=== PATIENT | female | born 2005 | race Caucasian/White ===

== ENCOUNTER 2024-06-29 21:17 | Inpatient (IN) ==
--- NOTE | 2024-06-29 21:51 | Emergency Department Note ---
Impression & Plan Mandibular abscess, Swelling of right side of face, Trismus ED Provider Note CHIEF COMPLAINT: Right sided facial swelling, dental pain x 1 week HISTORY OF PRESENT ILLNESS: This 18-year-old female patient presents to the emergency department via private vehicle accompanied by male for evaluation of right-sided dental pain and facial swelling. Patient states she developed dental pain about a week ago. She notes that she was seen by her dentist in [place] twice last week. She was started on amoxicillin and had a temporary crown placed. Patient states since , she has developed intermittent chills and fevers with Tmax of 100.9 F. She states that she has been taking amoxicillin and diclofenac without relief of her symptoms. Today, the patient is having difficulty opening her mouth due to the pain and swelling. She has not taken any additional medication for her symptoms. She denies any discharge from the mouth. She states that there is pain radiating down toward the neck and into the right ear as well. She denies any chest pain or shortness of breath. No numbness or tingling. Patient has had recent cold-like symptoms with congestion, runny nose, and sore throat. REVIEW OF SYSTEMS: A 10 system review of systems was performed with positives and pertinent negatives listed in the history of present illness. All other systems were reviewed and are negative. ALLERGIES: NKDA PHYSICAL EXAM: VITALS: Vitals are noted on the nurse's note and reviewed by myself. Vital signs stable. GENERAL: This is a 18-year-old female, in no acute distress, nondiaphoretic, well-developed well-nourished. SKIN: The skin was without rashes, erythema, edema, or bruising. There is no tenting of the skin. Capillary refill less than 2 seconds. HEAD: Normocephalic atraumatic. EARS: External auditory canals clear, tympanic membranes pearly de without erythema or effusion bilaterally. No hemotympanum. Negative baker sign EYES: Pupils equal round and reactive to light and accommodation. Conjunctivae without injection, sclerae without icterus. Extraocular movements intact. NOSE: Patent, turbinates without inflammation or discharge. No sinus tenderness. MOUTH: Mucous membranes moist. +Trismus. Tonsils are not enlarged. Pharynx without erythema or exudate. Uvula midline. Airway patent. Tongue does not deviate. Patient is generally good dentition. There is some edema and tenderness of the gingiva lower side of the jaw on the right. No specific dental pain to percussion. NECK: Supple without nuchal rigidity. No lymphadenopathy. Cervical spine is nontender. No JVD. HEART: Regular rate and rhythm without murmurs gallops or rubs. LUNGS: Clear to auscultation bilaterally without wheezes, rales or rhonchi. No retractions or accessory muscle use. MUSCULOSKELETAL: No muscle atrophy, erythema, or edema noted. Full range of motion without joint tenderness in all extremities. No tenderness to palpation. Normal gait. Strength 5/5 throughout. NEURO: Patient was alert and oriented to person place and time. No focal neurological deficits. An order was placed for continuous property assessment monitor. The monitor showed a sinus tachycardia at a ventricular rate of 109 bpm, per my interpretation. Imaging as interpreted by myself and the radiologist revealed periapical abscesses with large periosteal abscess about the medial right mandible extending into the submandibular space, with radiologist interpretation as above. I agree with the radiologist's findings as based upon my independent interpretation. EMERGENCY DEPARTMENT COURSE: The patient was seen and evaluated as above. The patient presents for right-sided facial pain and swelling. The patient does also have trismus. She has been having fevers, chills, difficulty eating and drinking. Patient did have a root canal and temporary crown placed earlier in the week by a dentist in [place]. Given the patient's history and examination, I did recommend workup as above. IV access was obtained, labs were drawn. Per my interpretation, there is no leukocytosis or anemia. No thrombocytopenia. Hepatic function and electrolytes without significant abnormality. INR 1.1. hCG negative. Procalcitonin less than 0.02. Respiratory bio fire test is negative. Patient was hydrated with IV fluids. She was medicated with IV dexamethasone and Unasyn, and acetaminophen. CT imaging was completed and reviewed by myself radiologist as noted. CT scan was consistent with multiple periapical abscesses with large periosteal abscess about the medial right mandible extending into the submandibular space. I discussed case with Dr. Thomas. He did recommend the patient be admitted to the medicine service and he will evaluate her tomorrow. He requested the patient remain on IV antibiotics but stay n.p.o. for the rest of the night until he evaluates her tomorrow. I discussed findings with the patient at bedside. The patient notes she is feeling somewhat improved. She states she only has pain when she touches her face. I discussed case with the restaurant hospitality manager. I discussed the case with the [facility] hospitalist. Please see hospitalist dictation regarding ongoing management and final disposition of this patient. I attest that I have personally reviewed the patient medication list. I attest that I have reviewed the patient's blood pressure and it was found to be elevated. Referred to PCP. GCS: 15 In the evaluation and treatment of this patient the following differential diagnoses were entertained: Dental caries, dental abscess, Ludwigs angina, Vincent angina, dental fracture, facial cellulitis, parotitis, osteomyelitis, sinus infection, peritonsillar abscess. The chart was completed utilizing [employer] voice recognition software. Grammatical errors, random word insertions, pronoun errors, and incomplete sentences are an occasional consequence of this system due to software limitations, ambient noise, and hardware issues. Any formal questions or concerns about the content, text, or information contained within the body of this dictation should be directly addressed to the provider for clarification. Past Med/Surg History Problem List Trismus (Acute) Swelling of right side of face (Acute) Mandibular abscess (Acute) Medical History No pertinent past medical history Social History Smoking Status: Never smoker Preferred Language: Maltese Feels Safe at Home: Yes Allergies Allergies Allergy/AdvReac Type Severity Reaction Status Date / Time No Known Allergies Allergy Unverified 06/29/24 22:21 Home Meds Home Medications Medication Instructions Recorded Confirmed amoxicillin 500 mg capsule 500 mg PO TID 06/29/24 06/30/24 ascorbic acid (vitamin C) 500 mg 500 mg PO QAM 06/29/24 06/30/24 tablet (Vitamin C) diclofenac potassium 25 mg tablet 0 mg PO DAILY 06/29/24 06/30/24 Results & Data (ED) Vital Signs Vital Signs - 24 hr 06/29/24 21:17 06/29/24 22:18 06/29/24 22:18 Temperature 36.7 C Temperature Source Temporal Artery Scan Pulse Rate 109 H Pulse Rate [Apical] 95 H Pulse Rhythm [Apical] Regular Pulse Strength [Apical] Respiratory Rate 20 20 Respiratory Effort / Characteristics Non-Labored Spontaneous Non-Labored Spontaneous Respiratory Depth Normal Normal Respiratory Pattern Regular Regular Blood Pressure 145/88 H Blood Pressure [Left Arm] 117/77 Blood Pressure Mean 107 Blood Pressure Mean [Left Arm] 90 Pulse Oximetry 97 99 99 Oxygen Delivery Method Room Air Room Air Room Air Sepsis Recent Fever Within 48 Hours Yes Sepsis New/Unexplained Change in Mental Status No Sepsis Action Taken by Nursing No Action Required 06/30/24 00:05 06/30/24 00:41 06/30/24 01:19 Temperature Temperature Source Pulse Rate Pulse Rate [Apical] 84 85 92 H Pulse Rhythm [Apical] Regular Regular Regular Pulse Strength [Apical] Normal Normal Respiratory Rate 18 18 19 Respiratory Effort / Characteristics Non-Labored Spontaneous Non-Labored Spontaneous Non-Labored Spontaneous Respiratory Depth Normal Normal Normal Respiratory Pattern Regular Regular Regular Blood Pressure Blood Pressure [Left Arm] 116/65 119/82 123/79 Blood Pressure Mean Blood Pressure Mean [Left Arm] 82 94 93 Pulse Oximetry 97 97 97 Oxygen Delivery Method Room Air Room Air Room Air Sepsis Recent Fever Within 48 Hours Sepsis New/Unexplained Change in Mental Status Sepsis Action Taken by Nursing Laboratory Data 06/29/24 22:01 06/29/24 22:01 Lab Results 06/29/24 06/29/24 Range/Units 22:01 22:06 WBC 8.56 (4.8-10.8) K/ul RBC 4.40 (4.20-5.40) M/uL Hgb 12.6 (12.0-16.0) g/dl POC Hgb 12.6 (12.0-16.0) g/dl Hct 37.2 (37.0-47.0) % POC Hct 37 (37-47) % MCV 84.5 (80.0-100.0) fL MCH 28.6 (25.0-34.0) pg MCHC 33.9 (32.0-36.0) g/dL RDW Std Deviation 36.2 L (36.4-46.3) fL RDW Coeff of Jeison 11.9 (11.5-14.5) % Plt Count 290 (130-400) K/uL MPV 9.1 L (9.4-12.4) fL Immature Gran % (Auto) 0.2 % Neut % (Auto) 62.3 % Lymph % (Auto) 26.1 % Dickens % (Auto) 9.9 % Eos % (Auto) 1.1 % Baso % (Auto) 0.4 % Neut # (Auto) 5.34 (1.40-6.50) K/uL Lymph # (Auto) 2.23 (1.20-3.40) K/uL Dickens # (Auto) 0.85 H (0.11-0.59) K/uL Eos # (Auto) 0.09 (0.00-0.50) K/uL Baso # (Auto) 0.03 (0.00-0.20) K/uL Immature Gran # (Auto) 0.02 (0.01-0.20) K/uL PT 11.4 (9.0-12.0) Seconds INR 1.1 (0.9-1.1) APTT 31 (21-31) Seconds PTT Ratio 1.2 POC Sodium 139 (135-144) mmol/L Sodium 138 (136-145) mmol/L POC Potassium 3.5 (3.3-5.0) mmol/L Potassium 3.5 (3.5-5.1) mmol/L POC Chloride 102 (101-112) mmol/L Chloride 103 (98-107) mmol/L Carbon Dioxide 26 (21-32) mmol/L POC Total CO2 23 L (24-31) mmol/L Anion Gap 9 (3-11) POC Anion Gap 18.0 (16-25) mmol/L POC BUN 5 L (7-18) mg/dl BUN 7 (6-23) mg/dl Creatinine 0.58 L (0.6-1.2) mg/dl POC Creatinine 0.5 mg/dl Est Cr Clr Drug Dosing 152.2 ml/min Est GFR ( Amer) > 150.0 ml/min Est GFR (Non-Af Amer) 133.6 ml/min BUN/Creatinine Ratio 12.1 (10-20) Glucose 79 (70-99(Fasting)) mg/dl POC Glucose (other) 81 (70-99) mg/dl Calcium 9.5 (8.6-10.3) mg/dl POC Ioniz Calcium Bernarda 1.21 mmol/l Total Bilirubin 0.5 (0.2-1.0) mg/dl AST 17 (13-39) U/L ALT 18 (7-52) U/L Alkaline Phosphatase 67 (34-104) U/L Total Protein 7.6 (6.0-8.3) gm/dl Albumin 4.5 (3.4-5.0) gm/dl Globulin 3.1 (2.5-4.0) gm/dl Albumin/Globulin Ratio 1.5 (0.9-2) Procalcitonin < 0.02 (0-0.5) ng/ml HCG, Qual Negative (Negative) Adenovirus (PCR) Not Detected (NotDetected) B. pertussis DNA (PCR) Not Detected (NotDetected) B.parapertussis DNA PCR Not Detected (NotDetected) C. pneumoniae DNA (PCR) Not Detected (NotDetected) Coronavirus OC43 (PCR) Not Detected (NotDetected) Coronavirus HKU1 (PCR) Not Detected (NotDetected) Coronavirus 229E (PCR) Not Detected (NotDetected) SARS-CoV-2 (PCR) Not Detected (NotDetected) Coronavirus NL63 (PCR) Not Detected (NotDetected) Human Metapneumovir PCR Not Detected (NotDetected) Influenza Type A (PCR) Not Detected (NotDetected) Influenza Type B (PCR) Not Detected (NotDetected) M. pneumoniae (PCR) Not Detected (NotDetected) Parainfluenza 1 (PCR) Not Detected (NotDetected) Parainfluenza 2 (PCR) Not Detected (NotDetected) Parainfluenza 3 (PCR) Not Detected (NotDetected) Parainfluenza 4 (PCR) Not Detected (NotDetected) RSV (PCR) Not Detected (NotDetected) Entero/Rhino (PCR) Not Detected (NotDetected) Administered Medications Discontinued Medications Dexamethasone Sodium Phosphate (DexamethasonePf 10 Mg/Ml Vial) 10 mg IV NOW ONE Stop: 06/29/24 21:43 Last Admin: 06/29/24 22:09 Dose: 10 mg Documented By: EZEKIEL Sodium Chloride (Nss) 1,000 mls @ 999 mls/hr IV .Q1H1M ONE Stop: 06/29/24 22:42 Last Infusion: 06/30/24 00:40 Dose: Infused Documented By: Admin: 06/29/24 22:15 Dose: 999 mls/hr Documented By: EZEKIEL Acetaminophen (Ofirmev) 1,000 mg in 100 mls @ 400 mls/hr IV NOW STA Stop: 06/29/24 21:56 Last Infusion: 06/29/24 22:20 Dose: Infused Documented By: Admin: 06/29/24 22:12 Dose: 400 mls/hr Documented By: EZEKIEL Ampicillin Sodium/Sulbactam Sodium (Unasyn) 3,000 mg in 100 mls @ 200 mls/hr IV NOW STA Stop: 06/29/24 22:11 Last Infusion: 06/29/24 22:47 Dose: Infused Documented By: Admin: 06/29/24 22:12 Dose: 200 mls/hr Documented By: EZEKIEL Ioversol (Optiray 320 100ml) 93 ml IV ONCE ONE Stop: 06/29/24 22:34 Last Admin: 06/29/24 22:33 Dose: 93 ml Documented By: ILENE Imaging Data Radiologist's Impression: Soft Tissue Neck CT 06/29/24 21:42 CR Exam(s): CT NECK With Contrast IV Amt: 93ml EXAM: CT Neck With Intravenous Contrast CLINICAL HISTORY: Reason for exam: dental pain, right facial swelling, trismus. TECHNIQUE: Axial computed tomography images of the neck with intravenous contrast. CTDI is 11.82 mGy and DLP is 357.32 mGy-cm. Automated exposure control was utilized for the study. A dose lowering technique was utilized adhering to the principles of ALARA. CONTRAST: Patient received 93ml of IV contrast COMPARISON: No relevant prior studies available. FINDINGS: Nasal cavity/septum: Unremarkable. Nasopharynx: Unremarkable. Oropharynx: Unremarkable. No significant tonsillar enlargement. No peritonsillar abscess. Hypopharynx: Unremarkable. Larynx: Unremarkable. Normal epiglottis. Trachea: Unremarkable. Retropharyngeal space: Unremarkable. Submandibular/parotid glands: There is a rim-enhancing abscess in the right submandibular space. Glands are normal in size. Thyroid: Unremarkable. No enlarged or calcified nodules. Bones/joints: There are periapical lucencies about tooth #3 and 30 concerning for periapical abscesses status post root canal concerning for failed root canals. Soft tissues: There is a large periosteal abscess along the medial right mandible extending to the submandibular space measuring 39.3 x 25.1 x 15.7 mm with extensive inflammation of the surrounding soft tissues. Vasculature: No acute findings. Lymph nodes: Right cervical lymphadenopathy. Sinuses: Unremarkable as visualized. No acute sinusitis. Lung apices: Unremarkable as visualized. IMPRESSION: Findings concerning for periapical abscesses about tooth #3 and 30 with large periosteal abscess about the medial right mandible stent into the submandibular space measuring 39.3 x 25.1 x 15.7 mm. Recommend dental consult. Communications: Verify Receipt Electronically signed by: Jen Smith MD 06/30/24 01:31 AM Discharge Plan Visit Data Chief Complaint: Dental/Oral Stated Complaint: DENTAL PAIN ED Provider: Rafael Membreno ED Midlevel Provider: Evie Sue Discharge Problem: Mandibular abscess, Swelling of right side of face, Trismus Patient Disposition: Admitted As Inpatient Condition: Good Forms Stand Alone Forms: [facility], Important Visit Information Prescriptions Prescriptions: No Action amoxicillin 500 mg Capsule 500 mg PO TID Rx Instructions: last dose 06/30/2024 ascorbic acid (vitamin C) [Vitamin C] 500 mg Tablet 500 mg PO QAM diclofenac potassium 25 mg Tablet 0 mg PO DAILY Rx Instructions: pt unsure of strength Referrals Referrals: PCP,NO [Primary Care Provider] -
[2024-06-29] MEDS: dexAMETHasone**PF** 10 MG/ML VIAL IV ONE (22:09)
[2024-06-29] MEDS: ACETAMINOPHEN 1,000 MG/100 ML VIAL IV STA (22:12)
[2024-06-29] MEDS: AMPICILLIN/SULBACTAM SOD 3,000 MG/100 ML BAG IV STA (22:12)
[2024-06-29 22:15] LABS: Basophils # (auto) 0.03 K/uL (0.00-0.20); Basophils % (auto) 0.4 %; Eosinophils # (auto) 0.09 K/uL (0.00-0.50); Eosinophils % (auto) 1.1 %; Hematocrit (blood only) 37.2 % (37.0-47.0); Hemoglobin 12.6 g/dl (12.0-16.0); Immature Granulocytes # (auto) 0.02 K/uL (0.01-0.20); Immature Granulocytes % (auto) 0.2 %; Lymphocytes # (auto) 2.23 K/uL (1.20-3.40); Lymphocytes % (auto) 26.1 %; Mean Corpuscular Hemoglobin 28.6 pg (25.0-34.0); Mean Corpuscular Hgb Conc 33.9 g/dL (32.0-36.0); Mean Corpuscular Volume 84.5 fL (80.0-100.0); Mean Platelet Volume 9.1 fL (9.4-12.4); Monocytes # (auto) 0.85 K/uL (0.11-0.59); Monocytes % (auto) 9.9 %; Neutrophils # (auto) 5.34 K/uL (1.40-6.50); Neutrophils % (auto) 62.3 %; Platelet Count 290 K/uL (130-400); RDW Coefficient of Variation 11.9 % (11.5-14.5); RDW Standard Deviation 36.2 fL (36.4-46.3); White Blood Count 8.56 K/ul (4.8-10.8)
[2024-06-29] MEDS: SODIUM CHLORIDE 0.9% 1,000 ML IV ONE (22:15)
[2024-06-29 22:19] LABS: iSTAT Creatinine 0.5 mg/dl; iSTAT Hemoglobin 12.6 g/dl (12.0-16.0); iSTAT Ionized Calcium 1.21 mmol/l; iSTAT Potassium 3.5 mmol/L (3.3-5.0)
[2024-06-29 22:32] LABS: Alanine Aminotransferase 18 U/L (7-52); Albumin Globulin Ratio 1.5 (0.9-2); Albumin Level 4.5 gm/dl (3.4-5.0); Alkaline Phosphatase 67 U/L (34-104); Anion Gap 9 (3-11); Aspartate Aminotransferase 17 U/L (13-39); BUN Creatinine Ratio 12.1 (10-20); Bilirubin,Total 0.5 mg/dl (0.2-1.0); Blood Urea Nitrogen 7 mg/dl (6-23); Calcium 9.5 mg/dl (8.6-10.3); Carbon Dioxide 26 mmol/L (21-32); Chloride 103 mmol/L (98-107); Creatinine Clr Calc Pharmacy 152.2 ml/min; Est GFR (African American) > 150.0 ml/min; Est GFR (Non-African American) 133.6 ml/min; Globulin 3.1 gm/dl (2.5-4.0); Glucose 79 mg/dl (70-99(Fasting)); Potassium 3.5 mmol/L (3.5-5.1); Sodium 138 mmol/L (136-145); Total Protein 7.6 gm/dl (6.0-8.3)
[2024-06-29] MEDS: OPTIRAY 320 100ml IV ONE (22:33)
[2024-06-29 23:13] LABS: Pregnancy Test, Serum Negative (Negative)
[2024-06-29 23:15] LABS: Adenovirus PCR Not Detected (NotDetected); Bordetella parapertussis PCR Not Detected (NotDetected); Bordetella pertussis PCR Not Detected (NotDetected); Chlamydia pneumoniae PCR Not Detected (NotDetected); Coronavirus 229E PCR Not Detected (NotDetected); Coronavirus CoV-2 (COVID19)PCR Not Detected (NotDetected); Coronavirus HKU1 PCR Not Detected (NotDetected); Coronavirus NL63 PCR Not Detected (NotDetected); Coronavirus OC43PCR Not Detected (NotDetected); Human Metapneumovirus PCR Not Detected (NotDetected); Influenza A PCR Not Detected (NotDetected); Influenza B PCR Not Detected (NotDetected); Mycoplasma pneumoniae PCR Not Detected (NotDetected); Parainfluenza Virus 1 PCR Not Detected (NotDetected); Parainfluenza Virus 2 PCR Not Detected (NotDetected); Parainfluenza Virus 3 PCR Not Detected (NotDetected); Parainfluenza Virus 4 PCR Not Detected (NotDetected); Respiratory Syncytial VirusPCR Not Detected (NotDetected); Rhinovirus/Enterovirus PCR Not Detected (NotDetected)
[2024-06-29 23:32] LABS: INR 1.1 (0.9-1.1); Partial Thromboplastin Ratio 1.2; Partial Thromboplastin Time 31 Seconds (21-31); Prothrombin Time 11.4 Seconds (9.0-12.0)
--- NOTE | 2024-06-30 01:32 | CT Scan Report ---
Exam(s): CT NECK With Contrast IV Amt: 93ml EXAM: CT Neck With Intravenous Contrast CLINICAL HISTORY: Reason for exam: dental pain, right facial swelling, trismus. TECHNIQUE: Axial computed tomography images of the neck with intravenous contrast. CTDI is 11.82 mGy and DLP is 357.32 mGy-cm. Automated exposure control was utilized for the study. A dose lowering technique was utilized adhering to the principles of ALARA. CONTRAST: Patient received 93ml of IV contrast COMPARISON: No relevant prior studies available. FINDINGS: Nasal cavity/septum: Unremarkable. Nasopharynx: Unremarkable. Oropharynx: Unremarkable. No significant tonsillar enlargement. No peritonsillar abscess. Hypopharynx: Unremarkable. Larynx: Unremarkable. Normal epiglottis. Trachea: Unremarkable. Retropharyngeal space: Unremarkable. Submandibular/parotid glands: There is a rim-enhancing abscess in the right submandibular space. Glands are normal in size. Thyroid: Unremarkable. No enlarged or calcified nodules. Bones/joints: There are periapical lucencies about tooth #3 and 30 concerning for periapical abscesses status post root canal concerning for failed root canals. Soft tissues: There is a large periosteal abscess along the medial right mandible extending to the submandibular space measuring 39.3 x 25.1 x 15.7 mm with extensive inflammation of the surrounding soft tissues. Vasculature: No acute findings. Lymph nodes: Right cervical lymphadenopathy. Sinuses: Unremarkable as visualized. No acute sinusitis. Lung apices: Unremarkable as visualized. IMPRESSION: Findings concerning for periapical abscesses about tooth #3 and 30 with large periosteal abscess about the medial right mandible stent into the submandibular space measuring 39.3 x 25.1 x 15.7 mm. Recommend dental consult. Communications: Verify Receipt Electronically signed by: Jen Smith MD 06/30/24 01:31 AM
--- NOTE | 2024-06-30 02:07 | History & Physical Report ---
Date of Service June 30, 2024 Assessment & Plan (1) Mandibular abscess: Plan: - Noted on CT scan - No signs of sepsis - ED spoke with Dr. Thomas- who will see the pt tomorrow - pain well controlled with IV Tylenol-> continue prn - NPO pending eval - continue Unasyn, per Dr. Thomas no need for further steroids Plan Code: Full VTE Prophylaxis: defer chemical pending surgical eval Diet: NPO Dispo: Med Surg History of Present Illness Primary Care Provider: NO PCP 18 year old female without any significant past medical history presenting with dental infection. Pain started in March. Worse over the past week. Saw her dentist on Monday (6 days ago) and was told that she had an infection, started on 500mg amoxicillin TID. Pain did not improve with antibiotic, which prompted her to come here for evaluation. In ED CT with periapical abscesses about tooth #3 and 30 with large periosteal abscess about the medial right mandible stent into the submandibular space measuring 39.3 x 25.1 x 15.7 mm. Was started on Unasyn. S/p 10mg dexamethasone. Allergies Allergy/AdvReac Type Severity Reaction Status Date / Time No Known Allergies Allergy Unverified 06/29/24 22:21 Home Medications Medication Instructions Recorded Confirmed Type amoxicillin 500 mg capsule 500 mg PO TID 06/29/24 06/30/24 History ascorbic acid (vitamin C) 500 mg 500 mg PO QAM 06/29/24 06/30/24 History tablet (Vitamin C) diclofenac potassium 25 mg tablet 0 mg PO DAILY 06/29/24 06/30/24 History Past Med/Surg History Problem List Trismus (Acute) Swelling of right side of face (Acute) Mandibular abscess (Acute) Medical History No pertinent past medical history Social History Smoking Status: Never smoker Second Hand Exposure: No; Do You Dip or Chew Tobacco: No; Tobacco Cessation Education Requested by Patient: No Hx Alcohol Use: No Hx Substance Use: No Preferred Language: Polish Communication Ability: Effective Warehouse Order Picker Required: No Beliefs That Will Affect Care: None Current Living Situation: Other Current Living Situation Comment: lives w/ boyfriend Other Information That Helps Us Care for You: No Feels Safe at Home: Yes Safety Concerns: Feels Safe At This Time Assistive Devices: None Review of Systems 2 Review of Systems: As per above Physical Exam Physical Exam: Constitutional: well-appearing, no acute distress HEENT: NCAT, no conjunctival injection CV: regular rhythm, no murmur appreciated, extremities well-perfused, no LE edema Resp: CTABL, no wheezes/rales/rhonchi appreciated, no increased work of breathing MSK: no gross deformities appreciated Skin: warm, dry, no rash appreciated Neuro: alert, oriented, no focal neurologic deficit appreciated Results & Data Results & Data Vital Signs (Past 12 Hours) Vital Signs Temp Pulse Pulse Resp BP BP Pulse Ox 06/30/24 01:19 92 H 19 123/79 97 06/30/24 00:41 85 18 119/82 97 06/30/24 00:05 84 18 116/65 97 06/29/24 22:18 99 06/29/24 22:18 95 H 20 117/77 99 06/29/24 21:17 36.7 C 109 H 20 145/88 H 97 O2 Del Method 06/30/24 01:19 Room Air 06/30/24 00:41 Room Air 06/30/24 00:05 Room Air 06/29/24 22:18 Room Air 06/29/24 22:18 Room Air 06/29/24 21:17 Room Air Supervising Physician Co-Signing Physician Notes Attending addendum: I have physically seen this patient, have supervised the medical residents activities, and agree with the H&P unless as otherwise noted. Assessment and Plan: Periapical abscess around #3 and #30- NPO until seen by Dr. Thomas Large periosteal abscess about the medial right mandible stent into the submandibular space measuring 39.3 x 25.1 x 15.7 mm Unasyn 3 g IV every 6 hours Acetaminophen 1 g IV every 8 hours as needed for pain or fever Status post dexamethasone 10 mg IV x 1 in the ED NSS 1 L bolus from the ED LR at 125 mL/h
[2024-06-30] MEDS: AMPICILLIN/SULBACTAM SOD 3,000 MG/100 ML BAG IV SCH (03:21)
--- NOTE | 2024-06-30 06:33 | Billing Data ---
Date of Service June 30, 2024 Coding Level of Care Code 43301 INT INP/OBS CARE
[2024-06-30] MEDS: LACTATED RINGER'S 1,000 ML IV SCH (06:51)
--- NOTE | 2024-06-30 12:29 | Oral/Maxillofacial Consult ---
Date of Consultation June 30, 2024 Assessment & Plan (1) Trismus: (2) Swelling of right side of face: (3) Mandibular abscess: (4) Failing root canal: History of Present Illness Attending Physician: Bre Nixon MD History of Present Illness Oral Maxillofacial Surgery Exam Present Complaint: I have pain/swelling/drainage from my infected# 30 tooth. Symptoms have been ongoing for a while. Had a large filling place in # 30 in the past. Over the lest few weeks # 30 became symptomatic-this resulted in her going to her dentist in [place] for treatment. On June 26 she had a root canal and crown prep on # 30 with temp crown. Over the last few days after the treatment -developed right submandibular swelling with trismus. The Amoxicillin was not healing and she presented to the ER. Looks to have localized infection floor of the mouth and and masseter space infection that is causing the trismus. Discussed the case with Ade and her father (phone) they are requesting extraction of # 30 with the I&D. I did discuss that another option was I&D only and then complete the crown but they do not want t go this route. The family has lost confidence with this dental office and requested the extraction and I&D. Given the amount of radiolucency associated with # 30 I agree that this would be the best option. HISTORY OF PRESENT ILLNESS: This 18-year-old female patient presents to the emergency department via private vehicle accompanied by male for evaluation of right-sided dental pain and facial swelling. Patient states she developed dental pain about a week ago. She notes that she was seen by her dentist in [place] twice last week. She was started on amoxicillin and had a temporary crown placed. Patient states since , she has developed intermittent chills and fevers with T-max of 100.9 F. She states that she has been taking amoxicillin and diclofenac without relief of her symptoms. Today, the patient is having difficulty opening her mouth due to the pain and swelling. She has not taken any additional medication for her symptoms. She denies any discharge from the mouth. She states that there is pain radiating down toward the neck and into the right ear as well. She denies any chest pain or shortness of breath. No numbness or tingling. Patient has had recent cold-like symptoms with congestion, runny nose, and sore throat. REVIEW OF SYSTEMS: A 10 system review of systems was performed with positives and pertinent negatives listed in the history of present illness. All other systems were reviewed and are negative. ALLERGIES: NKDA PHYSICAL EXAM: VITALS: Vitals are noted on the nurse's note and reviewed by myself. Vital signs stable. GENERAL: This is a 18-year-old female, in no acute distress, nondiaphoretic, well-developed well-nourished. SKIN: The skin was without rashes, erythema, edema, or bruising. There is no tenting of the skin. Capillary refill less than 2 seconds. HEAD: Normocephalic atraumatic. EARS: External auditory canals clear, tympanic membranes pearly de without erythema or effusion bilaterally. No hemotympanum. Negative baker sign EYES: Pupils equal round and reactive to light and accommodation. Conjunctivae without injection, sclerae without icterus. Extraocular movements intact. NOSE: Patent, turbinates without inflammation or discharge. No sinus tenderness. MOUTH: Mucous membranes moist. +Trismus. Tonsils are not enlarged. Pharynx without erythema or exudate. Uvula midline. Airway patent. Tongue does not deviate. Patient is generally good dentition. There is some edema and tenderness of the gingiva lower side of the jaw on the right. No specific dental pain to percussion. NECK: Supple without nuchal rigidity. No lymphadenopathy. Cervical spine is nontender. No JVD. HEART: Regular rate and rhythm without murmurs gallops or rubs. LUNGS: Clear to auscultation bilaterally without wheezes, rales or rhonchi. No retractions or accessory muscle use. MUSCULOSKELETAL: No muscle atrophy, erythema, or edema noted. Full range of motion without joint tenderness in all extremities. No tenderness to palpation. Normal gait. Strength 5/5 throughout. NEURO: Patient was alert and oriented to person place and time. No focal neurological deficits. Oral Exam: Finding--P-cor associated with the impacted teeth, tender gingival tissue with deep pocket formation.Teeth are in an abnormal position and removal is clinical indicated. Imaging: EXAM: CT Neck With Intravenous Contrast CLINICAL HISTORY: Reason for exam: dental pain, right facial swelling, trismus. FINDINGS: Nasal cavity/septum: Unremarkable. Nasopharynx: Unremarkable. Oropharynx: Unremarkable. No significant tonsillar enlargement. No peritonsillar abscess. Hypopharynx: Unremarkable. Larynx: Unremarkable. Normal epiglottis. Trachea: Unremarkable. Retropharyngeal space: Unremarkable. Submandibular/parotid glands: There is a rim-enhancing abscess in the right submandibular space. Glands are normal in size. Thyroid: Unremarkable. No enlarged or calcified nodules. Bones/joints: There are periapical lucencies about tooth #3 and 30 concerning for periapical abscesses status post root canal concerning for failed root canals. Soft tissues: There is a large periosteal abscess along the medial right mandible extending to the submandibular space measuring 39.3 x 25.1 x 15.7 mm with extensive inflammation of the surrounding soft tissues. Vasculature: No acute findings. Lymph nodes: Right cervical lymphadenopathy. Sinuses: Unremarkable as visualized. No acute sinusitis. Lung apices: Unremarkable as visualized. IMPRESSION: Findings concerning for periapical abscesses about tooth #3 and 30 with large periosteal abscess about the medial right mandible stent into the submandibular space measuring 39.3 x 25.1 x 15.7 mm. Recommend dental consult. Soft tissue: The right floor of the mouth is swollen and tender, as is the submandibular area under the jaw-this is improved The infection has localized to the right floor of the mouth and a associated with tooth # 30 Otherwise tongue, hard/soft palate, posterior pharyngeal area all with in normal limits, no pathology or abnormal findings noted. Oral Care: Overall oral care is good Occlusion: Class I TMJ exam: Not able to evaluate due to trismus Periodontal exam: Healthy gingival tissue without evidence of periodontal pathology. Head/Neck exam: Neck is supple, FROM, Able to extend and flex neck w/o difficulty, no masses, no abnormalities, no airway issues, Treatment Plan: Set up in OR tomorrow AM for extraction # 30 with I&D Set up with general anesthesia in hospital due to complexity of the procedure Consent signed I reviewed the treatment plan and consent with the patient and father (phone) Understanding was expressed. Time was given for questions regarding the surgery, risks and post op care. Discussed alternative to treatment--procedure as planned or consider I&D only. The following teeth are decayed and fractured and removal is indicated VALERIE:# 30 with I&D Risks discussed: Bleeding,Pain,swelling,infection, dry socket, delayed healing, nerve injury to face,lips,tongue,chin area which could be permanent (rare). TMJ, jaw stiffness, change in bite (rare), ear pain (referred). Sinus problems like fistula or infection. Need to leave a small root fragment in place to avoid injury to nerve or sinus. Relationship # 30 roots to nerve and risk of jaw fracture. Also discussed that # 3 root canal also looks like there is a radiolucent area that will need endodontic evaluation-presently no symptoms. Home care reviewed: tooth brushing, rinsing, follow up care with Dr Thomas. diet=[id number] dental. Discussed activity level, driving/work while on Rx pain Meds. Surgery to be set up July 01 in OR. Allergies Allergy/AdvReac Type Severity Reaction Status Date / Time No Known Allergies Allergy Unverified 06/29/24 22:21 Home Medications Medication Instructions Recorded Confirmed Type amoxicillin 500 mg capsule 500 mg PO TID 06/29/24 06/30/24 History ascorbic acid (vitamin C) 500 mg 500 mg PO QAM 06/29/24 06/30/24 History tablet (Vitamin C) diclofenac potassium 25 mg tablet 0 mg PO DAILY 06/29/24 06/30/24 History Patient History Medical History No pertinent past medical history Social History Smoking Status: Never smoker Second Hand Exposure: No; Do You Dip or Chew Tobacco: No; Tobacco Cessation Education Requested by Patient: No Hx Alcohol Use: No Hx Substance Use: No Preferred Language: Maltese Communication Ability: Effective Events Administrative Assistant Required: No Beliefs That Will Affect Care: None Current Living Situation: Other Current Living Situation Comment: lives w/ boyfriend Other Information That Helps Us Care for You: No Feels Safe at Home: Yes Safety Concerns: Feels Safe At This Time Assistive Devices: None Results & Data Vital Signs (Past 12 Hours) Vital Signs Temp Pulse Pulse Resp BP Pulse Ox O2 Del Method 06/30/24 07:07 36.8 C 80 16 93/52 L 98 Room Air 06/30/24 03:00 36.9 C 85 20 122/78 98 Room Air 06/30/24 01:19 92 H 19 123/79 97 Room Air 06/30/24 00:41 85 18 119/82 97 Room Air PG Care Time/CCT Total # of Minutes Spent Total Time Spent with Patient: Total time spent is greater than 50% in coordination of care (as documented) at patient's floor/unit and/or counseling patient: Coding Level of Care Code 80607 IN/OBS CONSULT LVL 3,45M Diagnoses Trismus R25.2 Swelling of right side of face R22.0 Mandibular abscess M27.2 Failing root canal M27.59 CPT Codes EO I&D ABSC/CYST FLOOR OF MOUTH ORTHOPEDICS TEACHER SP - [id number] ([id number]) REM IMP TOOTH W MUCOPER FLP - D7210 ([id number])
--- NOTE | 2024-06-30 13:15 | Hospitalist Progress Note ---
Date of Service June 30, 2024 Assessment & Plan (1) Mandibular abscess: Plan: - Noted on CT scan - No signs of sepsis - Dr. Thomas saw patient today - patient and father requesting extraction of #30 with I&D. Per Dr. Thomas, given the amount of radiolucency associated with #30, he feels extraction and I&D is the best option. - Pain well controlled with IV Tylenol-> continue prn - NPO - Continue Unasyn Plan Code: Full VTE Prophylaxis: defer chemical pending surgical eval Diet: NPO Dispo: Med Surg Admission and Anticipated Discharge Date Admission Date: June 30, 2024 Tunde Figueroa) is a 18 y/o female who presented to the ER with one week of jaw pain/dental infection with worsening symptoms. She saw her dentist on 06/24, was started on Antibiotics and a crown was placed. Over the past few days, symptoms worsened which prompted her to come to the ER. CT showed periapical abscesses at tooth #3 and #30 with large periosteal abscess at the medial R mandible stent into the submandibular space measuring 39.3 x 25.1 x15.7 mm. She was given one dose of dexamethasone in the ER and started on Unasyn. Since yesterday, Cheri reports that her L sided facial swelling and pain has improved from yesterday. She was waiting to see Dr. Thomas. Denies any CP, SOB, fevers/chills, abdominal pain, swelling (other than L jaw/face). Currently NPO and reports that she is thirsty. Review of Systems Constitutional: no fever, no chills, no sweats and no body aches Ear, Nose, Mouth, Throat: no ear pain Unable to open her mouth wide, reports sour taste in the back of her mouth, + R jaw/face swelling. Respiratory: no cough, no chest congestion and no dyspnea Cardiovascular: no chest pain Gastrointestinal: no abdominal pain, no nausea and no vomiting Genitourinary: no dysuria and no urinary frequency Musculoskeletal: as per Subjective / HPI Integumentary: no rash and no lesions Physical Exam Constitutional: WD/WN, vitals as above ENMT: Nose: no external nose abnormality Mouth: no lip abnormality (R jaw/cheek swelling) and no tongue abnormality Respiratory: normal respiratory effort, lungs clear to auscultation Cardiovascular: Rate/Rhythm: regular rate and regular rhythm Gastrointestinal (Abdomen): normal bowel sounds, soft, nontender, no hepatosplenomegaly Skin: no rashes, warm and dry Neurologic: PERRL, EOMI, accommodation nl, no face palsy, no dysarthria Psychiatric: A+Ox3, euthymic affect Results & Data Results & Data Vital Signs (Past 12 Hours) Vital Signs Temp Pulse Pulse Resp BP Pulse Ox O2 Del Method 06/30/24 07:07 36.8 C 80 16 93/52 L 98 Room Air 06/30/24 03:00 36.9 C 85 20 122/78 98 Room Air 06/30/24 01:19 92 H 19 123/79 97 Room Air Laboratory Results 06/29/24 06/29/24 Range/Units 22:06 22:01 WBC 8.56 (4.8-10.8) K/ul RBC 4.40 (4.20-5.40) M/uL Hgb 12.6 (12.0-16.0) g/dl POC Hgb 12.6 (12.0-16.0) g/dl Hct 37.2 (37.0-47.0) % POC Hct 37 (37-47) % MCV 84.5 (80.0-100.0) fL MCH 28.6 (25.0-34.0) pg MCHC 33.9 (32.0-36.0) g/dL RDW Std Deviation 36.2 L (36.4-46.3) fL RDW Coeff of Jeison 11.9 (11.5-14.5) % Plt Count 290 (130-400) K/uL MPV 9.1 L (9.4-12.4) fL Immature Gran % (Auto) 0.2 % Neut % (Auto) 62.3 % Lymph % (Auto) 26.1 % [place] % (Auto) 9.9 % Eos % (Auto) 1.1 % Baso % (Auto) 0.4 % Neut # (Auto) 5.34 (1.40-6.50) K/uL Lymph # (Auto) 2.23 (1.20-3.40) K/uL [place] # (Auto) 0.85 H (0.11-0.59) K/uL Eos # (Auto) 0.09 (0.00-0.50) K/uL Baso # (Auto) 0.03 (0.00-0.20) K/uL Immature Gran # (Auto) 0.02 (0.01-0.20) K/uL PT 11.4 (9.0-12.0) Seconds INR 1.1 (0.9-1.1) APTT 31 (21-31) Seconds PTT Ratio 1.2 POC Sodium 139 (135-144) mmol/L Sodium 138 (136-145) mmol/L POC Potassium 3.5 (3.3-5.0) mmol/L Potassium 3.5 (3.5-5.1) mmol/L POC Chloride 102 (101-112) mmol/L Chloride 103 (98-107) mmol/L Carbon Dioxide 26 (21-32) mmol/L POC Total CO2 23 L (24-31) mmol/L Anion Gap 9 (3-11) POC Anion Gap 18.0 (16-25) mmol/L POC BUN 5 L (7-18) mg/dl BUN 7 (6-23) mg/dl Creatinine 0.58 L (0.6-1.2) mg/dl POC Creatinine 0.5 mg/dl Est Cr Clr Drug Dosing 152.2 ml/min Est GFR ( Amer) > 150.0 ml/min Est GFR (Non-Af Amer) 133.6 ml/min BUN/Creatinine Ratio 12.1 (10-20) Glucose 79 (70-99(Fasting)) mg/dl POC Glucose (other) 81 (70-99) mg/dl Calcium 9.5 (8.6-10.3) mg/dl POC Ioniz Calcium Bernarda 1.21 mmol/l Total Bilirubin 0.5 (0.2-1.0) mg/dl AST 17 (13-39) U/L ALT 18 (7-52) U/L Alkaline Phosphatase 67 (34-104) U/L Total Protein 7.6 (6.0-8.3) gm/dl Albumin 4.5 (3.4-5.0) gm/dl Globulin 3.1 (2.5-4.0) gm/dl Albumin/Globulin Ratio 1.5 (0.9-2) Procalcitonin < 0.02 (0-0.5) ng/ml HCG, Qual Negative (Negative) Adenovirus (PCR) Not Detected (NotDetected) B. pertussis DNA (PCR) Not Detected (NotDetected) B.parapertussis DNA PCR Not Detected (NotDetected) C. pneumoniae DNA (PCR) Not Detected (NotDetected) Coronavirus OC43 (PCR) Not Detected (NotDetected) Coronavirus HKU1 (PCR) Not Detected (NotDetected) Coronavirus 229E (PCR) Not Detected (NotDetected) SARS-CoV-2 (PCR) Not Detected (NotDetected) Coronavirus NL63 (PCR) Not Detected (NotDetected) Human Metapneumovir PCR Not Detected (NotDetected) Influenza Type A (PCR) Not Detected (NotDetected) Influenza Type B (PCR) Not Detected (NotDetected) M. pneumoniae (PCR) Not Detected (NotDetected) Parainfluenza 1 (PCR) Not Detected (NotDetected) Parainfluenza 2 (PCR) Not Detected (NotDetected) Parainfluenza 3 (PCR) Not Detected (NotDetected) Parainfluenza 4 (PCR) Not Detected (NotDetected) RSV (PCR) Not Detected (NotDetected) Entero/Rhino (PCR) Not Detected (NotDetected) PG Care Time/CCT Total # of Minutes Spent Total Time Spent with Patient: Total time spent is greater than 50% in coordination of care (as documented) at patient's floor/unit and/or counseling patient: Coding [place] [address] SUB INP/OBS CARE 2/35MIN Patient Type Established History Expanded Problem Focused Exam Expanded Problem Focused Medical Decision Making Low Complexity Diagnoses Mandibular abscess M27.2
[2024-06-30] MEDS: ACETAMINOPHEN 1,000 MG/100 ML VIAL IV PRN (17:56)
--- NOTE | 2024-07-01 07:05 | Anesthesiology Consultation ---
Date of Service July 01, 2024 Assessment & Plan Chart Review Chart Review: Acceptable Risk for Surgery and Patient NOT seen in Pre Admission Testing History Surgery Operation Date: 07/01/24 09:10 Proposed Procedures p Incision and Drainage Right Floor of Mouth - Bora Thomas DMD s Extraction of Tooth #30 - Bora Yoni Thomas DMD Height/Weight Height: 5 ft 8 in Weight: 65.499 kg Allergies Allergy/AdvReac Type Severity Reaction Status Date / Time No Known Allergies Allergy Unverified 06/29/24 22:21 Medications Home Medications Medication Instructions Recorded Confirmed Last Taken amoxicillin 500 mg capsule 500 mg PO TID 06/29/24 06/30/24 06/29/24 ascorbic acid (vitamin C) 500 mg 500 mg PO QAM 06/29/24 06/30/24 06/28/24 tablet (Vitamin C) diclofenac potassium 25 mg tablet 0 mg PO DAILY 06/29/24 06/30/24 06/29/24 Active Medications Generic Name Dose Route Start Last Admin Trade Name Freq PRN Reason Stop Dose Admin Ampicillin Sodium/Sulbactam Sodium 3,000 mg in 100 mls @ 200 mls/hr 06/30/24 04:00 07/01/24 06:08 Unasyn IV 07/10/24 03:59 Infused Q6H ESME Infusion Acetaminophen 1,000 mg in 100 mls @ 400 mls/hr 06/30/24 03:07 07/01/24 05:27 Ofirmev IV 07/03/24 03:06 Infused Q8H PRN Infusion Pain Lactated Ringer's 1,000 mls @ 125 mls/hr 06/30/24 06:30 07/01/24 05:27 Lr IV 07/30/24 06:29 125 mls/hr .Q8H ESME Administration Past Medical History Medical History No pertinent past medical history Social History Smoking Status: Never smoker Do You Dip or Chew Tobacco: No Hx Alcohol Use: No Hx Substance Use: No Physical Exam Vital Signs Last Vital Signs Temp 37.1 C 06/30/24 22:42 Pulse 79 06/30/24 22:42 Resp 16 06/30/24 22:42 BP 93/57 L 06/30/24 22:42 Pulse Ox 97 06/30/24 22:42 O2 Del Method Room Air 06/30/24 22:42 Testing Laboratory Results 06/29/24 22:01 06/29/24 22:01 PT 11.4 Seconds (9.0-12.0) 06/29/24 22:01 INR 1.1 (0.9-1.1) 06/29/24 22:01 APTT 31 Seconds (21-31) 06/29/24 22:01
[2024-07-01] MEDS: LACTATED RINGER'S 1,000 ML IV SCH (11:08)
[2024-07-01] MEDS ORDERED: fentaNYL citrate PF 100 MCG/2 ML VIAL ONE (11:36)
[2024-07-01] MEDS ORDERED: MIDAZOLAM HCL 1 MG/ML 2ML VIAL ONE (11:36)
--- NOTE | 2024-07-01 11:53 | History & Physical Bridge Note ---
Date of Service July 01, 2024 History & Physical Bridge Note I have examined the patient, reviewed the History & Physical and in the interval since the performance of the History & Physical I have noted the following changes of clinical significance: no changes noted Still trismus swelling localized right floor of the mouth # 30
[2024-07-01] MEDS ORDERED: ONDANSETRON INJ 2 MG/ML 2 ML VIAL IV PRN (12:08)
[2024-07-01] MEDS ORDERED: fentaNYL citrate PF 100 MCG/2 ML VIAL IV PRN (12:08)
[2024-07-01] MEDS ORDERED: PROMETHAZINE HCL 6.25 MG in SODIUM CHLORIDE 0.9% 50 ML IV PRN (12:08)
[2024-07-01] MEDS ORDERED: KETOROLAC 30 MG/ML VIAL IV PRN (12:08)
[2024-07-01] MEDS ORDERED: ATROPINE SULFATE 0.1 MG/ML 10ML SYR IV PRN (12:08)
[2024-07-01] MEDS ORDERED: LIDOCAINE 2% 2 ML VIAL/AMP(20MG/ML) INFIL ONE (12:40)
[2024-07-01] MEDS ORDERED: ONDANSETRON INJ 2 MG/ML 2 ML VIAL ONE (12:40)
[2024-07-01] MEDS ORDERED: PROPOFOL IV EMULSION 10 MG/ML 20 ML VIAL IV ONE (12:40)
[2024-07-01] MEDS ORDERED: DEXAMETHASONE SOD INJ 4 MG/ML VIAL ONE (12:40)
[2024-07-01] MEDS ORDERED: ROCURONIUM BROMIDE 10 MG/ML 5 ML VIAL IV ONE (12:40)
[2024-07-01] MEDS ORDERED: KETOROLAC 30 MG/ML VIAL ONE (12:41)
[2024-07-01] MEDS: CHLORHEXIDINE GLUCONATE 0.12% 480 ML MT PRN (12:47)
[2024-07-01] MEDS: BUPIVACAINE/EPINEPHRINE 0.5% 1:200,000 1.8 ML CARP ONE (12:47)
--- NOTE | 2024-07-01 13:01 | Operative Report ---
PG Post Operative Report Pre & Post Diagnosis Operation Date: 07/01/24 09:10 Pre-Op Diagnosis: Mandibular abscess, Failing root canal Post-Op Diagnosis: Mandibular abscess, Failing root canal I identified the patient and participated in the time-out.: Yes Procedure Operation Date: 07/01/24 09:10 Actual Procedures p Incision and Drainage Right Floor of Mouth(Right) - Bora Thomas DMD s Extraction of Tooth #30(Not Applicable) - Bora Thomas DMD Surgeon Bora Thomas DMD Detonator Maker none Estimated Blood Loss 1 Findings Consistent with Post-Op Diagnosis swollen right floor of the mouth Specimens none Drains none Indications swelling right floor of the mouth Description of Procedure Cellulitis floor of mouth K12.1 Incision and Drainage Right Floor of Mouth CPT 98116 D7210 # 30 Actual Procedures p Incision and Drainage right floor of the mouth Removal of Tooth #30 (Not Applicable) - Bora Thomas DMD Once cleared for surgery general anesthesia was achieved, the eyes were protected by the anesthesia dept criteria. A time out was take for patient ID, antibiotics, equipment and position verification once all agreed the procedure began. Local anesthesia using Marcaine with a vasoconstrictor ( 1.8 ml per site) given into right inferior alveolar nerve A throat pack was placed after the oral cavity was irrigated with saline. Once a surgical level of anesthesia was obtained and the local anesthesia was given time for the blocks the surgery was started. I turned my attention to the infection which was located in the floor of the mouth with generalized edema of the right lateral jaw. The tongue was elevated and there was also swelling associated with tooth # 30 ( see CT scan report) Incision and Drainage Right Floor of Mouth CPT 79026, cellulitis floor of mouth K12.1 Using a 15 blade an incision was made medial to the alveolar ridge and lateral to the duct of the submandibular gland. Once the incision was made a lot of pus extruded from the site. A curved hemostat was carefully placed into the infected space along the medial side of the lower jaw and into the submental space and floor of the mouth. Some further drainage was now allowed to escape. I palpated the chin and submental area and no further drainage was expressed. The area was irrigated with at least 100 ml of NS solution. There was no swelling in the mucobuccal fold or associated with teeth #31 or 29 I now turned my attention to remove the # 30 tooth. Lower # 30 [id number] The full thick Muco-periosteal flap was made on the facial aspect from # 29-31. The flap was reflected to expose the the subperiosteal space the bone adjacent to # 30 The rongeur was used to remove bone, the tooth was removed with a 301 elevator and a cow horn dental forceps, the mental nerve was intact, there was a large amount of granulation tissue on the apex which was curetted and some more pus that was expressed. Closure was obtained with a 3-0 Vicryl suture. I inspected the sites to insure all bleeding was controlled. I removed the throat pack and suctioned the throat. Al gauze pressure dressings was placed. All instrument and sponge count was correct. The patient was allowed to awake from the anesthesia. Once full awake the anesthesia tube was removed and the patient was taken to the recovery room with all vital sign stable. The patient tolerated the surgery very well. I will follow the patient in my office, Rx and instructions will be given upon discharge. I will plan d/c with oral antibiotics and appropriate pain Meds. I will see Cheri later today I attest to the content of the Intraoperative Record and any orders documented therein. Any exceptions are noted below.
--- NOTE | 2024-07-01 14:07 | Anesthesiology Progress Note ---
Date of Service July 01, 2024 Anesthesia Post Procedure Vital Signs Vital Signs: Temp Pulse Pulse Resp BP Pulse Ox O2 Del Method 07/01/24 13:40 36.8 C 88 14 131/92 99 Room Air 07/01/24 13:30 83 12 134/81 99 Room Air 07/01/24 13:20 89 18 126/88 100 Oxymask 07/01/24 13:10 88 10 L 139/86 100 Oxymask 07/01/24 13:04 36.6 C 107 H 12 143/92 H 100 Oxymask 07/01/24 11:05 37 C 81 18 113/85 100 Room Air 07/01/24 07:51 37.0 C 83 16 110/68 97 Room Air 06/30/24 22:42 37.1 C 79 16 93/57 L 97 Room Air 06/30/24 15:01 36.9 C 90 16 110/69 99 Room Air O2 Flow Rate 07/01/24 13:40 0 07/01/24 13:30 0 07/01/24 13:20 4 07/01/24 13:10 4 07/01/24 13:04 8 07/01/24 11:05 07/01/24 07:51 06/30/24 22:42 06/30/24 15:01 Pain Intensity Right Jaw: Pain Intensity: 3 Transfer of Care Handoff Completed per policy Notes Mental Status: alert / awake / arousable Patient Amnestic to Procedure: Yes Nausea / Vomiting: adequately controlled Pain: adequately controlled Airway Patency, RR, SpO2: stable & adequate BP & HR: stable & adequate Hydration State: stable & adequate Anesthetic Complications: no major complications apparent
--- NOTE | 2024-07-01 16:31 | Oral/Maxillofacial Progress Nt ---
Date of Service July 01, 2024 Assessment & Plan Admission and Anticipated Discharge Date Admission Date: June 30, 2024 Subjective POST OP NOTE at night of procedure The patient did very well post operatively, some pain and sore throat as expected Tissue tone =healthy normal tissue ROM is now improving Sutures in place Reviewed diet, massage, exercise and continued oral care Will plan D/C tomorrow AM Overall: Good response to I&D and dental extraction # 30 I will Rx Augmentin and Vicodin I will follow in my office. Results & Data Vital Signs (Past 12 Hours) Vital Signs Temp Pulse Pulse Pulse Resp BP Pulse Ox 07/01/24 15:00 37.0 C 77 16 120/79 97 07/01/24 14:30 73 16 126/81 98 07/01/24 14:00 36.7 C 73 16 125/82 98 07/01/24 13:40 36.8 C 88 14 131/92 99 07/01/24 13:30 83 12 134/81 99 07/01/24 13:20 89 18 126/88 100 07/01/24 13:10 88 10 L 139/86 100 07/01/24 13:04 36.6 C 107 H 12 143/92 H 100 07/01/24 11:05 37 C 81 18 113/85 100 07/01/24 07:51 37.0 C 83 16 110/68 97 O2 Del Method O2 Flow Rate 07/01/24 15:00 Room Air 07/01/24 14:30 Room Air 07/01/24 14:00 Room Air 07/01/24 13:40 Room Air 0 07/01/24 13:30 Room Air 0 07/01/24 13:20 Oxymask 4 07/01/24 13:10 Oxymask 4 07/01/24 13:04 Oxymask 8 07/01/24 11:05 Room Air 07/01/24 07:51 Room Air PG Care Time/CCT Total # of Minutes Spent Total Time Spent with Patient: Total time spent is greater than 50% in coordination of care (as documented) at patient's floor/unit and/or counseling patient: Coding Level of Care Code None
[2024-07-01] MEDS ORDERED: HYDROcodone/ACETAMINOPHEN 10/325 TAB PO PRN (16:55)
--- NOTE | 2024-07-01 16:56 | Hospitalist Progress Note ---
Date of Service July 01, 2024 Assessment & Plan (1) Mandibular abscess: Plan: - Noted on CT scan - No signs of sepsis - Dr. Thomas performed I&D and extracted tooth #30 today in the OR - continue amp sulbactam tonight continue medications for pain control - APAP and ordered prn hydrocodone, anticipate discharge tomorrow morning with Augmentin and follow-up with Dr. Thomas Plan Code: Full VTE Prophylaxis: low risk Admission and Anticipated Discharge Date Admission Date: June 30, 2024 Subjective Seen preop. Still hard to open mouth and still with R jaw/dental pain however this has improved since yesterday Using only APAP for pain Physical Exam 2 Physical Exam: PHYSICAL EXAMINATION Last 24h vital signs reviewed, see documentation in flowsheet General: comfortable appearing, no distress HEENT: Normocephalic, atraumatic, pupils round and equal, sclerae anicteric, no conjunctival injection, moist mucus membranes swelling and tenderness right lower cheek/lower jaw, no intraoral drainage appreciated Lungs: Normal respiratory effort. Heart: deferred Abdomen: nondistended Extremities: Warm, dry, well-perfused. No extremity edema. Neuro: Alert and oriented x 4, face symmetric, moves 4 extremities well Psych: Normal affect and behavior Results & Data Results & Data Vital Signs (Past 12 Hours) Vital Signs Temp Pulse Pulse Pulse Resp BP Pulse Ox 07/01/24 16:28 37.2 C 66 16 114/71 97 07/01/24 15:00 37.0 C 77 16 120/79 97 07/01/24 14:30 73 16 126/81 98 07/01/24 14:00 36.7 C 73 16 125/82 98 07/01/24 13:40 36.8 C 88 14 131/92 99 07/01/24 13:30 83 12 134/81 99 07/01/24 13:20 89 18 126/88 100 07/01/24 13:10 88 10 L 139/86 100 07/01/24 13:04 36.6 C 107 H 12 143/92 H 100 07/01/24 11:05 37 C 81 18 113/85 100 07/01/24 07:51 37.0 C 83 16 110/68 97 O2 Del Method O2 Flow Rate 07/01/24 16:28 Room Air 07/01/24 15:00 Room Air 07/01/24 14:30 Room Air 07/01/24 14:00 Room Air 07/01/24 13:40 Room Air 0 07/01/24 13:30 Room Air 0 07/01/24 13:20 Oxymask 4 07/01/24 13:10 Oxymask 4 07/01/24 13:04 Oxymask 8 07/01/24 11:05 Room Air 07/01/24 07:51 Room Air Laboratory Results 06/29/24 22:01 06/29/24 22:01 PG Care Time/CCT Total # of Minutes Spent Total Time Spent with Patient: Total time spent is greater than 50% in coordination of care (as documented) at patient's floor/unit and/or counseling patient: Coding Level of Care Code 73657 SUB INP/OBS CARE 2/35MIN Diagnoses Mandibular abscess M27.2
[2024-07-01] MEDS: COUGH DROP (SUGAR FREE) LOZ 24 LOZ/1 BOX BUCCAL ONE (19:39)
[2024-07-02 03:22] VITALS: RESP 16
[2024-07-02 07:43] VITALS: BP 110/58; PULSE 71; TEMP 98.8; O2SAT 97
--- NOTE | 2024-07-02 11:21 | Discharge Summary ---
Discharge Summary Date of Service July 02, 2024 Principal Dx & Hospital Course #1 = Principal Diagnosis (1) Mandibular abscess: Admission HPI Per Admitting Provider 18 year old female without any significant past medical history presenting with dental infection. Pain started in March. Worse over the past week. Saw her dentist on Monday (6 days ago) and was told that she had an infection, started on 500mg amoxicillin TID. Pain did not improve with antibiotic, which prompted her to come here for evaluation. In ED CT with periapical abscesses about tooth #3 and 30 with large periosteal abscess about the medial right mandible stent into the submandibular space measuring 39.3 x 25.1 x 15.7 mm. Was started on Unasyn. S/p 10mg dexamethasone. Discharge Plan Discharge Items Patient Disposition: Home - Self-Care Reason For Visit: DENTAL INFECTION Discharge Diagnosis: Dental abscess - right mandibular molar - removal by Dr Bora Thomas Condition on Discharge: Good Activity: Resume your previous activity Lifting: Gradually increase as tolerated Bathing: No limitations Exercise/Sports: Gradually increase as tolerated Driving/Machine Use: NO DRIVING IF YOU ARE TAKING NARCOTIC PAIN KILLER MEDICINE Weightbearing: Full weightbearing Non-emergency contact: Primary Care Provider and Surgeon Call non-emergency contact if: you have any medication questions, your symptoms worsen, you have a fever, your wound has increased redness, your wound has increased drainage and your wound pain has increased Follow-up/Referrals: Bora Thomas, MARK [Physician] - 07/09/24 2:15 pm (7-10 DAYS ) PCP,NO [Primary Care Provider] - Diet: Full liquid Diet Texture: Easy to Chew Addtl Attending Provider Instructions: Ms Valadez, Gaston were hospitalized due to a dental abscess. This was a mandibular molar (bottom right). Dr Bora Thomas, oral surgeon, performed the tooth extraction procedure. You are recovering well thus far from your surgery. * antibiotics - take amoxicillin-clavulanate 875mg twice daily x 10 days, first dose tonight with your evening meal * most common side effect of this medicine - diarrhea; some people have nausea from the antibiotic as well * pain medicine - hydrocodone-acetaminophen, 1 tablet every 4 hours as needed for pain * this is a narcotic pain killer medication * DO NOT DRINK ALCOHOL IF TAKING THIS MEDICINE * DO NOT DRIVE A CAR IF TAKING THIS MEDICINE * this medicine may make you sleepy, impair your senses, or even affect your thinking * this medicine will often cause constipation * this medicine also contains tylenol in it; thus, if you have to take this medicine for pain, do not take extra moph-vbc-qegdxig tylenol with it * for any constipation you can take 1 or both of the following pqfl-wjl-vnpooup medicines - * miralax one serving daily * senna 2 tablets daily * avoid hard to chew, firm/hard solids in your diet * liquids as well as SOFT, easy to chew solids will be best during your recovery ADDITIONAL ACTIVITY RECOMMENDATIONS: * [place] teeth after every meal. It is very important to keep your mouth clean to prevent infection. * Starting tonight rinse with the Peridex as directed then TWICE DAILY thereafter. * it is very important to keep well hydrated, this prevents fever and possible dry socket pain SPECIAL CARE INSTRUCTIONS: *It is not uncommon that between day 2-4 that your swelling will be at its worst this is very normal, do not be alarmed. * Keep ice on the side of your face for the next 24 to 36 hours. This will help keep the swelling down. * After 36 hours, apply heat (hot water bottle or heating pad) for the next two days, as often as possible. * Tomorrow start rinsing your mouth with 1/2 teaspoon salt in 8 ounces warm water. This rinse should be used every 4-6 hours. * You may experience slight nausea. To prevent this, never take your medication on an empty stomach. If nauseated, take small sips of [place] idalia until you feel better; then you may start on applesauce and toast. * Some swelling is common. It should gradually decrease within 4-5 days. * A certain amount of bleeding is to be expected. It is often possible to control mild oozing by placing folded gauze over the area and biting down for 30 minutes. If you are unable to control excessive bleeding, call Dr Thomas at [phone] * You may experience some discomfort for a few days. If pain or swelling increases, Call Dr Thomas * Return to the office for a follow up check within 7-10 days * office address--[employer] phone # [phone] If you don't hear from Dr Thomas's office by the end of this week regarding a follow-up appointment, please call his office to schedule that appointment. Have a speedy recovery! -Dr Duong Pending Studies at Discharge: No Stand-Alone Forms: My [facility], Work/School Release, Smoking Cessation Medications and DC Order Prescriptions: New chlorhexidine gluconate 0.12 % Mouthwash 15 ml MT BID Qty: 473 0RF Rx Instructions: swish in mouth, rinse, then spit out Continued ascorbic acid (vitamin C) [Vitamin C] 500 mg Tablet 500 mg PO QAM hydrocodone-acetaminophen 5-325 mg tablet 1 tab PO Q4H PRN (Reason: pain) Qty: 20 0RF amoxicillin-pot clavulanate 875-125 mg tablet 1 tab PO Q12H 10 Days Qty: 20 0RF Changed ondansetron 4 mg tablet,disintegrating 4 mg PO Q6H PRN (Reason: nausea and vomiting) Qty: 10 0RF Discontinued amoxicillin 500 mg Capsule 500 mg PO TID Rx Instructions: last dose 06/30/2024 diclofenac potassium 25 mg Tablet 0 mg PO DAILY Rx Instructions: pt unsure of strength Discharge Orders: Discharge Order (Routine); Ordered 07/02/24 Ordered By: Yemi Silva/Other Patient Handouts: Cable Teeth: Removal, Cable Teeth Surgery- Your Recovery Admission Data Admit Date/Time: 06/30/24 02:18 Attending Provider: Yemi Duong Admit Provider: Erika Roth Primary Care Provider: PCP,NO Other Providers: Andrea Teran; Bora Thomas Hospital Stay Data Consultations 06/30/24 01:52 ED Decision to Admit Stat 06/30/24 02:30 Consult Oromaxillofacial Surgery Routine Procedures Performed Operation Date: 07/01/24 09:10 Actual Procedures p Incision and Drainage Right Floor of Mouth(Right) - Bora Thomas DMD s Extraction of Tooth #30(Not Applicable) - Bora Thomas DMD Diagnostic Imagining Performed 06/29/24 21:42 CT soft tissue neck w con Stat Pending Results Patient Have Any Pending Studies at Discharge: No Discharge Instructions Given to Patient (Per Discharging Provider) Gaston Contreras were hospitalized due to a dental abscess. This was a mandibular molar (bottom right). Dr Bora Thomas, oral surgeon, performed the tooth extraction procedure. You are recovering well thus far from your surgery. * antibiotics - take amoxicillin-clavulanate 875mg twice daily x 10 days, first dose tonight with your evening meal * most common side effect of this medicine - diarrhea; some people have na usea from the antibiotic as well * pain medicine - hydrocodone-acetaminophen, 1 tablet every 4 hours as needed for pain * this is a narcotic pain killer medication * DO NOT DRINK ALCOHOL IF TAKING THIS MEDICINE * DO NOT DRIVE A CAR IF TAKING THIS MEDICINE * this medicine may make you sleepy, impair your senses, or even affect your thinking * this medicine will often cause constipation * this medicine also contains tylenol in it; thus, if you have to take this medicine for pain, do not take extra maka-kdx-nrudoaw tylenol with it * for any constipation you can take 1 or both of the following byna-jzj-ypkulbq medicines - * miralax one serving daily * senna 2 tablets daily * avoid hard to chew, firm/hard solids in your diet * liquids as well as SOFT, easy to chew solids will be best during your recovery ADDITIONAL ACTIVITY RECOMMENDATIONS: * [place] teeth after every meal. It is very important to keep your mouth clean to prevent infection. * Starting tonight rinse with the Peridex as directed then TWICE DAILY thereafter. * it is very important to keep well hydrated, this prevents fever and possible dry socket pain SPECIAL CARE INSTRUCTIONS: *It is not uncommon that between day 2-4 that your swelling will be at its worst this is very normal, do not be alarmed. * Keep ice on the side of your face for the next 24 to 36 hours. This will help keep the swelling down. * After 36 hours, apply heat (hot water bottle or heating pad) for the next two days, as often as possible. * Tomorrow start rinsing your mouth with 1/2 teaspoon salt in 8 ounces warm water. This rinse should be used every 4-6 hours. * You may experience slight nausea. To prevent this, never take your medication on an empty stomach. If nauseated, take small sips of [place] idalia until you feel better; then you may start on applesauce and toast. * Some swelling is common. It should gradually decrease within 4-5 days. * A certain amount of bleeding is to be expected. It is often possible to control mild oozing by placing folded gauze over the area and biting down for 30 minutes. If you are unable to control excessive bleeding, call Dr Thomas at [phone] * You may experience some discomfort for a few days. If pain or swelling increases, Call Dr Thomas * Return to the office for a follow up check within 7-10 days * office address--[employer] phone # [phone] If you don't hear from Dr Thomas's office by the end of this week regarding a follow-up appointment, please call his office to schedule that appointment. Have a speedy recovery! -Dr Duong Coding Diagnoses Mandibular abscess M27.2
== END 2024-07-02 12:52 | disposition home or self-care (01) | DRG 138 ==
LOC: ED 21:17 → 3W 06-30 02:18 → SUATTDRO 06-30 02:18 → 3W 06-30 02:48